=== PATIENT | male | born 2005 | race Caucasian/White ===

== ENCOUNTER 2024-12-09 20:09 | Emergency (ER) | payer BC, OTHER, SELFPAY ==
[2024-12-09 20:10] VITALS: BP 138/80; PULSE 94; RESP 18; TEMP 36.1; O2SAT 97; BMI 32.0
--- NOTE | 2024-12-09 20:45 | EDS_ITS ---
HPI History of Present Illness Chief Complaint: Lower Extremity Injury Narrative Narrative: 19-year-old male who denies significant past medical history presents with injury to his right fifth toe that he sustained earlier today. He accidentally kicked a door/door jamb, and sustained a deformity to his right fifth toe. He and his mother states that they went to urgent care, and were told that they do not have the proper equipment to fix his right fifth toe. The report is that he had x-rays done at that time which showed a fracture of the middle bone of the fifth digit. He denies other injury. PFSH PFS Home Medications ?Medication ?Instructions ?Recorded ?Last Taken ?Type NK 12/09/24 Unknown History Allergy/AdvReac Type Severity Reaction Status Date / Time No Known Allergies Allergy Verified 12/09/24 20:12 Family History no significant family his Surgical History History of appendectomy Social History Smoking Status: Never smoker ROS ROS ED ROS Narrative Review of systems positive for fracture/dislocation of right fifth toe. Positive numbness of right fifth toe. No pain at base of fifth metatarsal, no ankle pain. EXAM Physical Exam Narrative Exam Narrative: GCS 15. ABCs intact. Cardiovascular examination regular rate and rhythm. Lungs clear to auscultation bilaterally. Abdomen is soft and nontender with positive bowel sounds. Examination of the right fifth toe does show lateral deviation of the phalanx. He has decreased sensation but good capillary refill. Palpable dorsalis pedis pulse. Const Vital Signs: 12/09/24 20:10 Temperature 97.0 F L Temperature Source Temporal Pulse Rate 94 Respiratory Rate 18 Blood Pressure 138/80 H Blood Pressure Mean 99 Pulse Ox 97 Oxygen Delivery Method Room Air MDM [facility] MDM Narrative Medical decision making narrative: I am unable to view the x-rays from the urgent care. I had lengthy discussion with the patient and his mother. I had offered to do a digital block, but he declined. He was given 1 [place] tablet and does not want a prescription written for narcotic pain medication. After [place], I we will aligned the fracture and shauna tape his toes together with the aid of the RN. I will obtain postreduction x-ray, and place him in a postoperative shoe and refer him to podiatry for follow-up. On my independent interpretation there is a fracture of the proximal phalanx that is midshaft with mild angulation. I reviewed the radiology report which comments on the comminuted fracture of the fifth proximal phalanx but states that anatomical alignment is maintained. He has been shuana taped prior to the x-ray and this is more of a postreduction x-ray that I interpreted. He will be placed in a postop shoe. I did offer to write him for narcotic pain medication but he declined. He will take [id number] medications. He was referred to podiatry. They will follow-up with podiatry within the next week. Return instructions to the emergency department were reviewed. Disposition is discharged home in stable condition. History & Record Review Discussion w/independent historian: Patient and Family (Mother) Radiography Diagnostic Testing: Clinical Impression(s) from Imaging Studies Foot X-Ray 12/09/24 21:20 IMPRESSION: Comminuted fracture of the 5th proximal phalanx. Anatomical alignment is maintained. [facility] T[facility] Chief Complaint: Lower Extremity Injury ED Provider: Jaxon Whitfield Dx/Rx/DC Orders Clinical Impression: Closed fracture of fifth toe of right foot Instructions: ED Fracture, Toe, Closed Prescriptions: No Action NK Primary Care Provider: Benjamín Lam Referrals: Benjamín Lam DO [Primary Care Provider] - Tommy Rainey DPM [Med Staff - Active Staff] - 3-5 Days Activity Restrictions/Additional Instructions: Follow-up with podiatry within the next week. Wear the postoperative shoe for weightbearing as tolerated. You can take [id number] medication such as Tylenol as ibuprofen as needed. Ice your foot/fifth toe. Print Language: Albanian Disposition Disposition: Home, Self Care
[2024-12-09] MEDS: HYDROcodone Bitartrate/Apap 5/325 Tablet PO (20:47)
--- NOTE | 2024-12-09 21:20 | RAD_ITS ---
EXAM: FOOT MIN 3 VIEWS CLINICAL HISTORY: Postreduction of fracture/dislocation. Pain COMPARISON: None. TECHNIQUE: Frontal, oblique, and lateral views of right foot were obtained. FINDINGS: Comminuted fracture of the 5th proximal phalanx. No dislocation is demonstrated. No radiopaque foreign body is present. RAD/Foot min 3 Views IMPRESSION: Comminuted fracture of the 5th proximal phalanx. Anatomical alignment is maint ained. Reading Location: [facility]
[2024-12-09 22:28] VITALS: BP 138/80; PULSE 94; RESP 18; TEMP 36.1; O2SAT 97
== END 2024-12-09 22:29 | disposition home or self-care (01) ==
PROVIDERS: Emergency Provider Emergency Medicine; PCP Family Medicine; Visit Provider Emergency Medicine
DX: S92.514A Nondisplaced fracture of proximal phalanx of right lesser toe(s), initial encounter for closed fracture (principal); W22.8XXA Striking against or struck by other objects, initial encounter
CPT/HCPCS: 73630; 99283